=== PATIENT | male | born 1965 | race American Indian/Alaskan Native ===

== ENCOUNTER 2017-07-16 23:40 | Emergency (ER) | payer MEDICAID ==
[2017-07-16 23:44] VITALS: BP 134/88
[2017-07-17] MEDS ORDERED: MOTRIN ONE (00:33)
[2017-07-17] MEDS ORDERED: FLEXERIL ONE (00:33)
[2017-07-17] MEDS ORDERED: FLEXERIL PO ONE (00:35)
[2017-07-17] MEDS ORDERED: MOTRIN PO ONE (00:35)
--- NOTE | 2017-07-17 01:15 | Emergency Department Report ---
HPI - General Chief Complaint: Extremity Injury, Lower Time Seen by Provider: 07/17/17 00:49 - HPI HPI: Patient is a 51 year old male who presents to ED complaining of left foot pain and swelling after tripping on the staircase earlier today. Patient states he was going up the stairs when he lost his footing and hit his toe on this. Patient states he did not sustain any fall on the stairs. He started experiencing pain and swelling on his left toe. He denies any laceration or loss of sensation. ED Past Medical Hx - Past Medical History Previous Medical History?: Yes Hx Hypertension: Yes Hx CVA: No Hx Heart Attack/AMI: Yes Hx Congestive Heart Failure: No Hx Diabetes: No Hx Deep Vein Thrombosis: No Hx Pulmonary Embolism: No Hx GERD: Yes Hx Liver Disease: No Hx Renal Disease: No Hx Sickle Cell Disease: No Hx Arthritis: No Hx Headaches / Migraines: No Hx Seizures: No Hx Kidney Stones: No Hx Psychiatric Treatment: Yes (mood swings.bipolar,schizophenia) Hx Asthma: No Hx COPD: No Hx Tuberculosis: No Hx Dementia: No Hx HIV: No Additional medical history: Alcohol abuse. high cholesterol, enlarged prostate - Surgical History Past Surgical History?: Yes Hx Coronary Stent: No Hx Open Heart Surgery: No Hx Pacemaker: No Hx Internal Defibrillator: Yes Hx Cholecystectomy: No Hx Appendectomy: No Hx Breast Surgery: No Additional Surgical History: polyp removal from kidney - Social History Smoking Status: Current Every Day Smoker Substance Use Type: Alcohol - Medications Home Medications: Home Medications Medication Instructions Recorded Confirmed Last Taken Type FLUoxetine [PROzac] 40 mg PO QDAY 05/27/13 06/25/15 10/15/13 09:00 History Lisinopril [Zestril TAB] 10 mg PO QDAY 05/27/13 06/25/15 10/15/13 09:00 History Albuterol Sulfate [Ventolin HFA] 2 puff IH Q4H PRN 01/07/14 06/25/15 Unknown History Esomeprazole Magnesium [NexIUM] 40 mg PO QDAY 01/07/14 06/25/15 Unknown History Finasteride [Proscar] 5 mg PO QDAY 01/07/14 06/25/15 Unknown History Gabapentin [Neurontin] 300 mg PO Q8H 01/07/14 06/25/15 Unknown History Isosorbide Mononitrate 10 mg PO QDAY 01/07/14 06/25/15 Unknown History Loratadine [Claritin] 10 mg PO DAILY 01/07/14 06/25/15 Unknown History Prazosin [Minipress] 2 mg PO QHS 01/07/14 06/25/15 Unknown History Rosuvastatin (Nf) [Crestor] 20 mg PO QHS 01/07/14 06/25/15 Unknown History Trazodone HCl [Oleptro ER] 150 mg PO QHS 01/07/14 06/25/15 Unknown History Tramadol HCl [traMADol] 50 - 100 mg PO TID PRN #20 tablet 09/19/14 06/25/15 Unknown Rx Gabapentin [Neurontin] 300 mg PO Q8H 10/22/14 06/25/15 Unknown History Folic Acid [Folvite] 1 mg PO QDAY #30 tablet 05/31/15 06/25/15 Unknown Rx Multivitamin Tab [Multiple Vitamin 1 each PO QDAY #30 tablet 05/31/15 06/25/15 Unknown Rx TAB (Theragran)] Thiamine [Vitamin B-1] 100 mg PO QDAY #30 05/31/15 06/25/15 Unknown Rx HYDROcodone/APAP 5-325 [[place] 1 each PO Q6HR PRN #14 tablet 06/25/15 Unknown Rx 5-325 mg TAB] Cyclobenzaprine [Flexeril] 10 mg PO BID PRN #20 tablet 07/17/17 Unknown Rx Naproxen [Naprosyn] 500 mg PO BID #30 tablet 07/17/17 Unknown Rx ED Review of Systems ROS: Stated complaint: L FOOT PAIN Other details as noted in HPI Constitutional: denies: chills, fever Eyes: denies: eye pain, eye discharge, vision change ENT: denies: ear pain, throat pain Respiratory: denies: cough, shortness of breath, wheezing Cardiovascular: denies: chest pain, palpitations Endocrine: no symptoms reported Gastrointestinal: denies: abdominal pain, nausea, diarrhea Genitourinary: denies: urgency, dysuria Musculoskeletal: denies: back pain, joint swelling, arthralgia Skin: denies: rash, lesions Neurological: denies: headache, weakness, paresthesias Psychiatric: denies: anxiety, depression Hematological/Lymphatic: denies: easy bleeding, easy bruising Physical Exam - Physical Exam Vital Signs: Vital Signs 07/16/17 23:43 Temperature 98 F Pulse Rate 90 Respiratory 16 Rate Blood Pressure 134/88 O2 Sat by Pulse 97 Oximetry Physical Exam: GENERAL: Alert and oriented x3, no apparent distress, Normal Gait, atraumatic. HEAD: Head is normocephalic and a-traumatic. NECK: Supple. Non edematous. No lymphadenopathy or thyromegaly. No C-spine tenderness LUNGS: Symetrical with respiration, No wheezing, no rales or crackles, CTAB. HEART: S1, S2 present, regular rate and rhythm without murmur, no rubs, no gallops. Non tender to palpation EXTREMITIES/MUSCULOSKELETAL: No cyanosis, clubbing, rash, lesions or edema of the foot. Full ROM bilaterally. PEdal Pulses 2+ bilaterally. LE 5+ strength bilaterally. Tenderness to palpation of the second and third toe the left foot. Ankle joint is intact ankle joint is intact NEUROLOGIC: The patient is cooperative with no focal neurologic deficits. . Normal speech. Normal sensation in bilateral upper and lower extremities, No loss of sensation, . SKIN: Warm and dry, No lesions, No ulceration or induration present. ED Course Vital Signs 07/16/17 23:43 Temperature 98 F Pulse Rate 90 Respiratory 16 Rate Blood Pressure 134/88 O2 Sat by Pulse 97 Oximetry ED Medical Decision Making - Radiology Data Radiology results: report reviewed, image reviewed FINAL REPORT EXAM: XR FOOT 2V LT HISTORY: Status post fall, left foot swollen. TECHNIQUE: Frontal and lateral radiographs of the left foot were obtained. No prior studies are available for comparison. FINDINGS: There is mild flattening of the calcaneal angle (Bohler angle), and slightly increased bony sclerosis at the anterior calcaneus. These findings are suspicious for underlying calcaneal fracture. There are mild degenerative changes in the midfoot. There is a mild hallux valgus. There is no dislocation. No other discrete osseous abnormality is seen. No significant soft tissue abnormality is identified. IMPRESSION: Mild flattening of the calcaneal angle, with slight increased bony sclerosis at the anterior calcaneus. These findings are suspicious for underlying calcaneal fracture, and correlation with physical exam is recommended. Transcribed By: [facility] Dictated By: NEPTALI BALDERAS MD Electronically Authenticated By: NEPTALI BALDERAS MD Signed Date/Time: 07/17/17 0116 - Medical Decision Making 51-year-old male presents with ED course: Patient received Motrin and Flexeril in the ED X-rays taken. Discussed x-rays finding with the patient.. Patient had no calcaneal tenderness or ankle swelling or pain. Method of injury does not correlate with a calcaneal fracture. Orthopedic referral given to the patient to follow-up for reexamination and follow-up x-ray Patient's foot was Dio wrapped and put in a postop shoe prior to discharge Vital signs are normal patient is in no acute distress Discussed with patient follow-up with primary care physician. Discussed the patient and take medications as prescribed. Patient has no neurological deficit. Patient is alert and oriented 3 and understands all instructions given. Discussed drowsiness effect of Flexeril makes her drowsy and not to operate machinery while taking flexeril Critical care attestation.: If time is entered above; I have spent that time in minutes in the direct care of this critically ill patient, excluding procedure time. ED Disposition Clinical Impression: Foot pain, left, Toe pain, left Disposition: TO HOME OR SELFCARE Is pt being admited?: No Does the pt Need Aspirin: No Condition: Stable Instructions: Ankle Exercises (GEN), Arthralgia (ED), Foot Sprain (ED) Additional Instructions: Make sure to follow up with the primary care physician as discussed. Take all your medications as you've been prescribed. If you have any worsening symptoms or develop new symptoms please return to ED immediately. Prescriptions: Cyclobenzaprine [Flexeril] 10 mg PO BID PRN #20 tablet PRN Reason: Muscle Spasm Naproxen [Naprosyn] 500 mg PO BID #30 tablet Referrals: MARILYN DELANEY MD [Primary Care Provider] - 3-5 Days [facility] [Outside] - 3-5 Days [facility] [Outside] - 3-5 Days [facility] [Outside] - 3-5 Days TWILA BENNETT MD [Staff Physician] - 3-5 Days [facility] [Provider Group] - 3-5 Days Forms: Work/School Release Form(ED) Time of Disposition: 01:37
--- NOTE | 2017-07-17 01:21 | XRay Report ---
FINAL REPORT EXAM: XR FOOT 2V LT HISTORY: Status post fall, left foot swollen. TECHNIQUE: Frontal and lateral radiographs of the left foot were obtained. No prior studies are available for comparison. FINDINGS: There is mild flattening of the calcaneal angle (Bohler angle), and slightly increased bony sclerosis at the anterior calcaneus. These findings are suspicious for underlying calcaneal fracture. There are mild degenerative changes in the midfoot. There is a mild hallux valgus. There is no dislocation. No other discrete osseous abnormality is seen. No significant soft tissue abnormality is identified. IMPRESSION: Mild flattening of the calcaneal angle, with slight increased bony sclerosis at the anterior calcaneus. These findings are suspicious for underlying calcaneal fracture, and correlation with physical exam is recommended.
== END 2017-07-17 01:45 | disposition home or self-care (01) ==
LOC: ED 23:40
DX: M79.672 Pain in left foot (principal); M79.675 Pain in left toe(s); M79.89 Other specified soft tissue disorders; I10 Essential (primary) hypertension; I25.2 Old myocardial infarction; K21.9 Gastro-esophageal reflux disease without esophagitis; F31.9 Bipolar disorder, unspecified; F20.9 Schizophrenia, unspecified; E78.00 Pure hypercholesterolemia, unspecified; F17.200 Nicotine dependence, unspecified, uncomplicated; Z95.818 Presence of other cardiac implants and grafts; W22.8XXA Striking against or struck by other objects, initial encounter; Y93.89 Activity, other specified; Y99.8 Other external cause status; Y92.89 Other specified places as the place of occurrence of the external cause
CPT/HCPCS: 99284

== ENCOUNTER 2017-07-25 10:59 | Emergency (ER) | payer MEDICAID ==
[2017-07-25 12:16] LABS: Basophils % (Auto) 0.4 % (0.0-1.8); Hemoglobin 12.5 gm/dl (11.8-15.2); Lymphocytes % (Auto) 14.2 % (13.4-35.0); Mean Corpuscular HGB Conc 35 % (32-34); Mean Corpuscular Hemoglobin 32 pg (28-32); Mean Corpuscular Volume 93 fl (84-94); Monocytes # (Auto) 0.4 K/mm3 (0.0-0.8); Platelet Count 199 K/mm3 (140-440); Red Blood Count 3.89 M/mm3 (3.65-5.03); Red Cell Distribution Width 17.8 % (13.2-15.2)
[2017-07-25 12:38] LABS: BUN/Creatinine Ratio 22; Blood Urea Nitrogen 13 mg/dL (9-20); Hemolysis Index 4
[2017-07-25 13:17] LABS: Bilirubin,Urine NEG (Negative); Blood,Urine NEG (Negative); Color,Urine Yellow (Yellow); Mucus,Urine FEW /HPF; Protein,Urine <15 mg/dL mg/dL (Negative); Urobilinogen,Urine < 2.0 mg/dL (<2.0)
[2017-07-25 13:24] LABS: Amphetamine Screen,Urine PRESUMPTIVE NEGATIVE; Benzodiazepines Screen,Urine PRESUMPTIVE NEGATIVE; Cocaine Screen,Urine PRESUMPTIVE NEGATIVE; Methadone Screen,Urine PRESUMPTIVE NEGATIVE; Opiate Screen,Urine PRESUMPTIVE NEGATIVE
[2017-07-25 13:47] LABS: Cannabinoid Screen,Urine PRESUMPTIVE POSITIVE
--- NOTE | 2017-07-25 17:58 | Emergency Department Report ---
HPI - General Chief Complaint: Medical Clearance Time Seen by Provider: 07/25/17 17:35 - HPI HPI: Room 8 The patient is a 51-year-old male presenting with a chief complaint of stating detox. The patient states she consumes approximately 1. or greater of liquor daily. Patient states last dose last night. Patient states he came to the emergency department to get into a detox program for alcohol. Patient states he did not eat last night because he was intoxicated and is now hungry. Location: Mental state Duration: [See above] Quality: Alcoholism Severity: Moderate Modifying factors: [see above] Context: [see above] Mode of transportation: [not driving] ED Past Medical Hx - Past Medical History Hx Hypertension: Yes Hx Heart Attack/AMI: Yes Hx GERD: Yes Hx Psychiatric Treatment: Yes (mood swings.bipolar,schizophenia) Additional medical history: Alcohol abuse. high cholesterol, enlarged prostate - Surgical History Hx Internal Defibrillator: Yes Additional Surgical History: polyp removal from kidney - Family History Family history: no significant - Social History Smoking Status: Current Every Day Smoker (1/2 pack per day) Substance Use Type: None (denies illicit drug use), Alcohol (1 pint or more of alcohol daily) - Medications Home Medications: Home Medications Medication Instructions Recorded Confirmed Last Taken Type FLUoxetine [PROzac] 40 mg PO QDAY 05/27/13 06/25/15 10/15/13 09:00 History Lisinopril [Zestril TAB] 10 mg PO QDAY 05/27/13 06/25/15 10/15/13 09:00 History Albuterol Sulfate [Ventolin HFA] 2 puff IH Q4H PRN 01/07/14 06/25/15 Unknown History Esomeprazole Magnesium [NexIUM] 40 mg PO QDAY 01/07/14 06/25/15 Unknown History Finasteride [Proscar] 5 mg PO QDAY 01/07/14 06/25/15 Unknown History Gabapentin [Neurontin] 300 mg PO Q8H 01/07/14 06/25/15 Unknown History Isosorbide Mononitrate 10 mg PO QDAY 01/07/14 06/25/15 Unknown History Loratadine [Claritin] 10 mg PO DAILY 01/07/14 06/25/15 Unknown History Prazosin [Minipress] 2 mg PO QHS 01/07/14 06/25/15 Unknown History Rosuvastatin (Nf) [Crestor] 20 mg PO QHS 01/07/14 06/25/15 Unknown History Trazodone HCl [Oleptro ER] 150 mg PO QHS 01/07/14 06/25/15 Unknown History Tramadol HCl [traMADol] 50 - 100 mg PO TID PRN #20 tablet 09/19/14 06/25/15 Unknown Rx Gabapentin [Neurontin] 300 mg PO Q8H 10/22/14 06/25/15 Unknown History Folic Acid [Folvite] 1 mg PO QDAY #30 tablet 05/31/15 06/25/15 Unknown Rx Multivitamin Tab [Multiple Vitamin 1 each PO QDAY #30 tablet 05/31/15 06/25/15 Unknown Rx TAB (Theragran)] Thiamine [Vitamin B-1] 100 mg PO QDAY #30 05/31/15 06/25/15 Unknown Rx HYDROcodone/APAP 5-325 [[place] 1 each PO Q6HR PRN #14 tablet 06/25/15 Unknown Rx 5-325 mg TAB] Cyclobenzaprine [Flexeril] 10 mg PO BID PRN #20 tablet 07/17/17 Unknown Rx Naproxen [Naprosyn] 500 mg PO BID #30 tablet 07/17/17 Unknown Rx Sulfamethoxazole/Trimethoprim 1 each PO BID #7 tablet 07/25/17 Unknown Rx [Bactrim DS TAB] ED Review of Systems ROS: Stated complaint: DETOX Other details as noted in HPI Eyes: denies: eye pain ENT: denies: throat pain Respiratory: denies: shortness of breath Cardiovascular: denies: chest pain Gastrointestinal: denies: abdominal pain Genitourinary: denies: dysuria Musculoskeletal: arthralgia Physical Exam - Physical Exam Vital Signs: Vital Signs 07/25/17 11:34 Temperature 98.2 F Pulse Rate 104 H Respiratory 16 Rate Blood Pressure 160/104 O2 Sat by Pulse 98 Oximetry Physical Exam: GENERAL: The patient is well-developed well-nourished male lying on stretcher not appearing to be in acute distress. [] HEENT: Normocephalic. Atraumatic. Extraocular motions are intact. Patient has moist mucous membranes. NECK: Supple. Trachea midline CHEST/LUNGS: Clear to auscultation. There is no respiratory distress noted. HEART/CARDIOVASCULAR: Regular. There is no tachycardia. There is no gallop rub or murmur. ABDOMEN: Abdomen is soft, nontender. Patient has normal bowel sounds. There is no abdominal distention. SKIN: There is no rash. There is no edema. There is no diaphoresis. NEURO: The patient is awake, alert, and oriented. The patient is cooperative. The patient has normal speech MUSCULOSKELETAL: There is no evidence of acute injury. ED Course Vital Signs 07/25/17 11:34 Temperature 98.2 F Pulse Rate 104 H Respiratory 16 Rate Blood Pressure 160/104 O2 Sat by Pulse 98 Oximetry - Consultations Consultation #1: 07/25/17 19:41 Case discussed with mental health [employer] (María Elena)- unable to place patient in inpatient detox facility. Patient will have to use outpatient detox ED Medical Decision Making - Lab Data Result diagrams: 07/25/17 11:43 07/25/17 11:43 Laboratory Tests 07/25/17 07/25/17 07/25/17 11:43 11:43 11:43 WBC RBC Hgb Hct MCV MCH MCHC RDW Plt Count Lymph % (Auto) [place] % (Auto) Eos % (Auto) Baso % (Auto) Lymph # [place] # Eos # Baso # Seg Neutrophils % Seg Neutrophils # Sodium 141 Potassium 3.7 Chloride 98.4 Carbon Dioxide 22 Anion Gap 24 BUN 13 Creatinine 0.6 L Estimated GFR > 60 BUN/Creatinine Ratio 22 Glucose 65 L Calcium 9.0 Urine Color Urine Turbidity Urine pH Ur Specific [place] Urine Protein Urine Glucose (UA) Urine Ketones Urine Blood Urine Nitrite Urine Bilirubin Urine Urobilinogen Ur Leukocyte Esterase Urine WBC (Auto) Urine RBC (Auto) U Epithel Cells (Auto) Urine Mucus Salicylates < 0.3 L Urine Opiates Screen Urine Methadone Screen Acetaminophen < 5.0 L Ur Barbiturates Screen Ur Phencyclidine Scrn Ur Amphetamines Screen U Benzodiazepines Scrn Urine Cocaine Screen U Marijuana (THC) Screen Drugs of Abuse Note Plasma/Serum Alcohol 07/25/17 07/25/17 07/25/17 11:43 11:43 12:31 WBC 7.1 RBC 3.89 Hgb 12.5 Hct 36.0 MCV 93 MCH 32 MCHC 35 H RDW 17.8 H Plt Count 199 Lymph % (Auto) 14.2 [place] % (Auto) 5.0 Eos % (Auto) 0.0 Baso % (Auto) 0.4 Lymph # 1.0 L [place] # 0.4 Eos # 0.0 Baso # 0.0 Seg Neutrophils % 80.4 H Seg Neutrophils # 5.7 Sodium Potassium Chloride Carbon Dioxide Anion Gap BUN Creatinine Estimated GFR BUN/Creatinine Ratio Glucose Calcium Urine Color Yellow Urine Turbidity Clear Urine pH 5.0 Ur Specific [place] 1.014 Urine Protein <15 mg/dl Urine Glucose (UA) Neg Urine Ketones 20 Urine Blood Neg Urine Nitrite Neg Urine Bilirubin Neg Urine Urobilinogen < 2.0 Ur Leukocyte Esterase Sm Urine WBC (Auto) 12.0 H Urine RBC (Auto) 2.0 U Epithel Cells (Auto) < 1.0 Urine Mucus Few Salicylates Urine Opiates Screen Urine Methadone Screen Acetaminophen Ur Barbiturates Screen Ur Phencyclidine Scrn Ur Amphetamines Screen U Benzodiazepines Scrn Urine Cocaine Screen U Marijuana (THC) Screen Drugs of Abuse Note Plasma/Serum Alcohol 0.03 07/25/17 12:31 WBC RBC Hgb Hct MCV MCH MCHC RDW Plt Count Lymph % (Auto) [place] % (Auto) Eos % (Auto) Baso % (Auto) Lymph # [place] # Eos # Baso # Seg Neutrophils % Seg Neutrophils # Sodium Potassium Chloride Carbon Dioxide Anion Gap BUN Creatinine Estimated GFR BUN/Creatinine Ratio Glucose Calcium Urine Color Urine Turbidity Urine pH Ur Specific [place] Urine Protein Urine Glucose (UA) Urine Ketones Urine Blood Urine Nitrite Urine Bilirubin Urine Urobilinogen Ur Leukocyte Esterase Urine WBC (Auto) Urine RBC (Auto) U Epithel Cells (Auto) Urine Mucus Salicylates Urine Opiates Screen Presumptive negative Urine Methadone Screen Presumptive negative Acetaminophen Ur Barbiturates Screen Presumptive negative Ur Phencyclidine Scrn Presumptive negative Ur Amphetamines Screen Presumptive negative U Benzodiazepines Scrn Presumptive negative Urine Cocaine Screen Presumptive negative U Marijuana (THC) Screen Presumptive positive Drugs of Abuse Note Disclamer Plasma/Serum Alcohol - Differential Diagnosis alcoholism Critical care attestation.: If time is entered above; I have spent that time in minutes in the direct care of this critically ill patient, excluding procedure time. ED Disposition Clinical Impression: Alcoholism, UTI (urinary tract infection) Disposition: DC-01 TO HOME OR SELFCARE Is pt being admited?: No Does the pt Need Aspirin: No Condition: Stable Instructions: Alcohol Intoxication (ED), Abuse of Alcohol (ED) Additional Instructions: Return to the emergency department immediately should you develop worsening symptoms, fever, inability to tolerate food or liquid or any other concerns. Prescriptions: Sulfamethoxazole/Trimethoprim [Bactrim DS TAB] 1 each PO BID #7 tablet Referrals: PRIMARY CARE, [Primary Care Provider] - 3-5 Days [facility] [Outside] - 3-5 Days Time of Disposition: 19:42
[2017-07-25] MEDS ORDERED: NACL 0.9% 1000 ML 1,000 ML ONE (18:29)
[2017-07-25] MEDS ORDERED: VITAMIN B-1 100 MG, FOLVITE 1 MG, INFUVITE 10 ML, MAGNESIUM SULFATE 2 GM in NACL 0.9% 1... IV ONE (18:30)
[2017-07-25] MEDS ORDERED: NACL 0.9% 1000 ML 1,000 ML IV ONE (18:34)
[2017-07-25 20:57] VITALS: BP 157/105
== END 2017-07-25 20:57 | disposition home or self-care (01) ==
LOC: ED 10:59
DX: F10.20 Alcohol dependence, uncomplicated (principal); N39.0 Urinary tract infection, site not specified; I10 Essential (primary) hypertension; I25.2 Old myocardial infarction; K21.9 Gastro-esophageal reflux disease without esophagitis; E78.00 Pure hypercholesterolemia, unspecified; F17.200 Nicotine dependence, unspecified, uncomplicated
CPT/HCPCS: 36415; 80048; 80307; 81001; 85025; 96365; 96366; 99284; G0480; J3411; J3475; J7030; 80320